=== PATIENT | female | born 1990 | race African-American/Black ===

== ENCOUNTER 2018-03-11 17:44 | Emergency (ER) | payer MEDICAID ==
[~2018-03-11] VITALS: Ht 168.9 cm; Wt 59.1 kg
[~2018-03-11 17:44] MED LIST: HYDROCODONE-APA1 TAB PO; IBUPROFEN600 MG PO; PRENATAL COMPLE1 TAB PO
[2018-03-11 18:18] VITALS: Ht 168.9 cm; Wt 59.1 kg
[2018-03-11 19:50] LABS: APPEARANCE CLEAR (CLEAR); COLOR YELLOW (YELLOW)
[2018-03-11 19:58] LABS: UDS - AMPHET NEGATIVE QUAL (NEGATIVE); UDS - BARB NEGATIVE QUAL (NEGATIVE); UDS - BENZO NEGATIVE QUAL (NEGATIVE); UDS - COCAINE NEGATIVE QUAL (NEGATIVE); UDS - OPIATE NEGATIVE QUAL (NEGATIVE); UDS - PCP NEGATIVE QUAL (NEGATIVE); UDS - THC POSITIVE QUAL (NEGATIVE)
[2018-03-11 20:00] LABS: BILIRUBIN NEGATIVE (NEGATIVE); GLUCOSE NEGATIVE (NEGATIVE); KETONE NEGATIVE (NEGATIVE); NITRITE NEGATIVE (NEGATIVE); PROTEIN NEGATIVE (NEGATIVE); SPECIFIC GRAVITY 1.015 (1.005-1.020); UROBILINOGEN NORMAL (NORMAL)
[2018-03-11 20:05] LABS: BASOPHILS 0.3 % (0-2); EOSINOPHILS 2.8 % (0-7); HCG SERUM POSITIVE (NEGATIVE); HEMATOCRIT 38.7 % (36.0-48.0); HEMOGLOBIN 13.2 g/dL (12-16); IMMATURE GRANULOCYTES 0.3 % (0-5); LYMPHOCYTES 35.8 % (15-50); MCH 31.6 pg (26.0-34.0); MCHC 34.1 g/dL (31.0-37.0); MCV 92.6 fL (80.0-100.0); MEAN PLATELET VOLUME 10.6 fL (7.4-10.4); MONOCYTES 7.2 % (2-11); NEUTROPHILS 53.6 % (40-80); PLATELET COUNT 110 10x3/uL (130-400); RBC 4.18 10x6/uL (4.00-5.40); RDW 13.5 % (11.5-14.5); WBC 7.1 10x3/uL (4.8-10.8)
[2018-03-11 20:22] LABS: ALBUMIN 3.9 g/dL (3.4-5.0); ALKALINE PHOSPHATASE 62 U/L (46-116); ALT (SGPT) 18 U/L (10-68); BILIRUBIN - TOTAL 0.62 mg/dL (0.2-1.3); CALC OSMOLALITY 273 mosm/kg (275-300); CALCIUM 8.5 mg/dL (8.5-10.1); CARBON DIOXIDE 24.3 mmol/L (21.0-32.0); CHLORIDE - SERUM 105 mmol/L (98-107); CREATININE - SERUM 0.6 mg/dL (0.6-1.3); POTASSIUM - SERUM 3.9 mmol/L (3.5-5.1); PROTEIN - SERUM 7.7 g/dL (6.4-8.2); SODIUM 138 mmol/L (136-145); UREA NITROGEN 11 mg/dL (7-18); eGFR NON AFRICAN AMERICAN > 90 mL/min (90-120)
[2018-03-11 20:23] LABS: GLUCOSE 81 mg/dL (74-106)
[2018-03-12 01:07] VITALS: BP 124/79
== END 2018-03-12 02:10 ==
LOC: D.ER 17:44
PROVIDERS: Family Medicine
DX: F32.9 Major depressive disorder, single episode, unspecified (principal); Z33.1 Pregnant state, incidental; F19.10 Other psychoactive substance abuse, uncomplicated

== ENCOUNTER 2019-01-27 06:54 | Emergency (ER) | payer MEDICAID ==
[~2019-01-27] VITALS: Ht 168.9 cm; Wt 77.3 kg
[2019-01-27 07:04] VITALS: Ht 168.9 cm; Wt 77.3 kg
[2019-01-27 07:32] LABS: BASOPHILS 0.1 % (0-2); EOSINOPHILS 2.2 % (0-7); HEMATOCRIT 40.4 % (36.0-48.0); HEMOGLOBIN 14.2 g/dL (12-16); IMMATURE GRANULOCYTES 0.1 % (0-5); LYMPHOCYTES 25.3 % (15-50); MCH 31.6 pg (26.0-34.0); MCHC 35.1 g/dL (31.0-37.0); MCV 89.8 fL (80.0-100.0); MONOCYTES 10.8 % (2-11); NEUTROPHILS 61.5 % (40-80); RDW 13.5 % (11.5-14.5); WBC 6.8 10x3/uL (4.8-10.8)
[2019-01-27 07:46] LABS: ALBUMIN 4.7 g/dL (3.4-5.0); ANION GAP 19.5 mmol/L (8-16); BILIRUBIN - TOTAL 1.4 mg/dL (0.2-1.3); CALCIUM 9.8 mg/dL (8.5-10.1); CARBON DIOXIDE 21.8 mmol/L (21.0-32.0); CREATININE - SERUM 1.1 mg/dL (0.6-1.3); MAGNESIUM - SERUM 2.1 mg/dL (1.8-2.4); POTASSIUM - SERUM 3.3 mmol/L (3.5-5.1)
[2019-01-27 07:56] LABS: PLATELET COUNT 223 10x3/uL (130-400)
[2019-01-27 07:59] LABS: PROTEIN - SERUM 8.9 g/dL (6.4-8.2)
--- NOTE | 2019-01-27 09:03 | NUR ---
MULTIPLE ATTEMPTS MADE TO COMPLETE SUICIDE ASSESSMENT. WILL CONTINUE TO ATTEMPT TO OBTAIN ASSESSMENT ONCE PT IS LESS LETHARGIC AND ABLE TO RESPOND TO QUESTIONS. DR. GARCIA NOTIFIED AND PT WAS PLACED WITH A 1:1 SITTER UNTIL FURTHER EVALUATION CAN BE OBTAINED.
[2019-01-27 10:15] LABS: HCG URINE NEGATIVE (NEGATIVE)
[2019-01-27 10:19] LABS: UDS - AMPHET POSITIVE QUAL (NEGATIVE); UDS - BARB NEGATIVE QUAL (NEGATIVE); UDS - BENZO NEGATIVE QUAL (NEGATIVE); UDS - COCAINE POSITIVE QUAL (NEGATIVE); UDS - OPIATE NEGATIVE QUAL (NEGATIVE); UDS - PCP NEGATIVE QUAL (NEGATIVE); UDS - THC POSITIVE QUAL (NEGATIVE)
[2019-01-27 10:33] LABS: APPEARANCE CLOUDY (CLEAR); BACTERIA FEW /hpf (NONE SEEN); BILIRUBIN NEGATIVE (NEGATIVE); COLOR YELLOW (YELLOW); EPITHELIAL CELL CAST OCC /lpf (NONE SEEN); EPITHELIAL CELLS 0-5 /hpf (0-5); GLUCOSE NEGATIVE (NEGATIVE); GRANULAR CAST OCC /lpf (NONE SEEN); KETONE LARGE mg/dL (NEGATIVE); MUCUS >1+ /lpf (NONE SEEN); NITRITE NEGATIVE (NEGATIVE); PROTEIN 1+ mg/dL (NEGATIVE); RED CELLS - URINE 0-5 /hpf (0-5); SPECIFIC GRAVITY 1.025 (1.005-1.020); WHITE CELLS - URINE 0-5 /hpf (0-5)
--- NOTE | 2019-01-27 12:46 | NUR ---
ATTEMPTED TO DO SUICIDE ASSESSMENT BUT UNABLE TO COMPLETE DUE TO PTS LETHAEGY. SITTER IN PLACE. WILL CONT Q 15 MINS FOR SAFETY.
[2019-01-27 16:15] VITALS: BP 122/85
--- NOTE | 2019-01-27 16:15 | NUR ---
DR. BRYAN NOTIFIED AND 1:1 SITTER OBSERVATION ORDERED. SITTER AT BEDSIDE. NOTIFIED CHARGE NURSE AND ATTENDING IN REGARDS TO ASSESSMENT FINDINGS. RESOURCES GIVEN TO PT AND SAFETY PLAN INITIATED.
== END 2019-01-27 17:00 ==
LOC: D.ER 06:54
PROVIDERS: Emergency Medicine
DX: F23 Brief psychotic disorder (principal); F19.10 Other psychoactive substance abuse, uncomplicated; F20.9 Schizophrenia, unspecified